=== PATIENT | male | born 1965 | race Caucasian/White ===

== ENCOUNTER 2022-08-12 04:59 | Emergency (ER) | payer OTHER ==
[2022-08-12] MEDS ORDERED: Pantoprazole 40 MG VIAL ONE (06:13)
[2022-08-12] MEDS ORDERED: Sodium Chloride 0.9% 1,000 ML ONE (06:13)
[2022-08-12 06:22] LABS: SARS-CoV-2 NAA Rapid Test Not Detected (NotDetected)
[2022-08-12 06:25] LABS: #Basophils 0.1 thou/uL (0.0-0.2); #Eosinphils 0.1 thou/uL (0.0-0.7); #Lymphocytes 0.5 thou/uL (1.20-3.40); #Monocytes 0.6 thou/uL (0.11-0.59); %Basophils 1.7 % (0.0-1.0); %Eosinophils 3.4 % (0.0-10.0); %Lymphocytes 12.5 % (21.0-51.0); %Monocytes 12.9 % (0.0-10.0); %Neutrophils 69.5 % (42.0-75.0); ALT (SGPT) 45 U/L (8-55); AST (SGOT) 40 U/L (5-34); Albumin 3.2 g/dL (3.5-5.0); Alkaline Phosphatase 159 U/L (40-110); Anion Gap 15 mmol/L (10-20); Anisocytosis SLIGHT = 6-15 cells (100X) (0-5/hpf); BUN (Urea Nitrogen) 10 mg/dL (8.4-25.7); Bilirubin, Total 4.8 mg/dL (0.2-1.2); Calc. Creatinine Clearance 0 mL/min (70-130); Calcium 8.5 mg/dL (7.8-10.44); Carbon Dioxide 18 mmol/L (22-29); Chloride 111 mmol/L (98-107); Estimated GFR 104; Globulin 3.8 g/dL (2.4-3.5); Glucose 193 mg/dL (70-105); Hemoglobin 13.5 g/dL (14.0-18.0); Lipase 33 U/L (8-78); MDiff Complete? YES; Magnesium 1.6 mg/dL (1.6-2.6); Mean Corpuscular HGB CONC 35.6 g/dL (32.0-36.0); Mean Corpuscular Hemoglobin 32.3 pg (27.0-31.0); Mean Corpuscular Volume 90.6 fl (78.0-98.0); Mean Platelet Volume 8.6 fL (7.4-10.4); Ovalocytes SLIGHT = 2-5 cells (100X) (0-1/hpf); Platelet Count 83 10x3/uL (130-400); Platelet Morphology Comment Appears Decreased; Potassium 3.7 mmol/L (3.5-5.1); RBC Distribution Width 15.3 % (11.5-14.5); Red Blood Cell (RBC) Count 4.18 mill/uL (4.70-6.10); Sodium 140 mmol/L (136-145); White Blood Cell (WBC) Count 4.3 10x3/uL (4.8-10.8)
[2022-08-12] MEDS ORDERED: Sodium Chloride 0.9% 500 ML ONE ×2 (08:55→10:39)
[2022-08-12 09:12] LABS: Lactic Acid 3.5 mmol/L (0.5-2.2)
[2022-08-12 09:46] LABS: Bilirubin Small (Negative); Blood, Urine Trace (Negative); Clarity Clear (Clear); Glucose, Urine (Dipstick) 100 mg/dL (Negative); Ketone, Urine Trace mg/dL (Negative); Leukocyte Negative (Negative); Nitrite Negative (Negative); Protein, Urine (Dipstick) Negative (Neg-Trace); Urobilinogen > or = 8.0 mg/dL (Less than 2)
[2022-08-12] MEDS ORDERED: Cefepime 2 GM VIAL ONE (09:50)
[2022-08-12] MEDS ORDERED: Sodium Chloride 0.9% 100 ML ONE (09:50)
[2022-08-12 09:53] LABS: RBC/HPF 0-3 HPF (0-3); Squamous Epithelial None Seen HPF (0-3); WBC/HPF None Seen HPF (0-3)
[2022-08-12 09:54] LABS: Bacteria/HPF None Seen HPF (None Seen)
[2022-08-12 09:55] LABS: Amphetamine Not Detected (NotDetected); Barbiturates Screen Not Detected (NotDetected); Benzodiazepine Screen Not Detected (NotDetected); Cocaine Metabolite Screen Not Detected (NotDetected); Methadone Not Detected (NotDetected); Methamphetamine Not Detected (NotDetected); Opiate Screen Not Detected (NotDetected); Oxycodone Screen Not Detected (NotDetected); Phencyclidine (PCP) Not Detected (NotDetected); THC/Cannabinoid Screen Not Detected (NotDetected); Tricyclic Screen Not Detected (NotDetected)
[2022-08-12] MEDS ORDERED: Vancomycin 1 GM VIAL ONE (10:39)
== END 2022-08-12 13:00 | disposition short-term general hospital (02) ==
LOC: NAV ERS 04:59 → EEVIPCON 04:59 → NAV ERS 13:00
DX: A41.9 Sepsis, unspecified organism (principal); G93.41 Metabolic encephalopathy; G40.909 Epilepsy, unspecified, not intractable, without status epilepticus; I50.9 Heart failure, unspecified; E11.9 Type 2 diabetes mellitus without complications; Z79.82 Long term (current) use of aspirin; Z79.899 Other long term (current) drug therapy; Z79.4 Long term (current) use of insulin; Z79.84 Long term (current) use of oral hypoglycemic drugs; Z20.822 Contact with and (suspected) exposure to COVID-19
CPT/HCPCS: 36415; 51701; 70450; 71045; 80053; 80177; 80306; 81003; 81015; 82140; 83605; 83690; 83735; 83880; 84443; 84484; 85025; 87040; 87086; 96365; 96366; 96367; 96375; C9113; J0692; J3370; J3490; J7030; J7050; U0002